=== PATIENT | female | born 1990 | race Two or more races ===

== ENCOUNTER 2018-05-20 22:25 | Emergency (ER) | payer MEDICAID, OTHER ==
[~2018-05-20] VITALS: Ht 165.1 cm; Wt 55.0 kg
[2018-05-21] MEDS ORDERED: OLANZAPINE 5MG TABLET ODT PO ONE (04:00)
[2018-05-21 05:04] LABS: BASOPHILS % 0.7 % (0.0-2.0); EOSINOPHILS % 3.9 % (0.0-5.0); HEMOGLOBIN. 12.2 g/dL (12.0-16.0); LYMPHOCYTES % 41.1 % (20.0-50.0); MEAN CORPUSCULAR HEMOGLOBIN 31.9 pg (28.0-32.0); MEAN CORPUSCULAR VOLUME 96.6 fL (81.0-99.0); MEAN PLATELET VOLUME 8.7 fl (7.4-10.4); MONOCYTES % 6.5 % (2.0-8.0); NEUTROPHILS % 47.8 % (40.0-76.0); PLATELET 283 x1000/uL (130-400); RED BLOOD CELL COUNT 3.83 mill/uL (4.2-5.4); RED CELL DISTRIBUTION WIDTH 13.4 % (11.6-14.6)
[2018-05-21 05:07] LABS: CHLORIDE 99 mEq/L (98-107)
[2018-05-21 05:11] LABS: ETHANOL BLOOD < 10 mg/dL
[2018-05-21] MEDS ORDERED: INSULIN REGULAR (HUMULIN R) 300UNITS/3ML SUBCUT ONE (05:45)
[2018-05-21] MEDS ORDERED: LORAZEPAM 1MG TABLET PO ONE (05:45)
[2018-05-21 05:50] VITALS: BP 108/70
== END 2018-05-21 06:23 | disposition home or self-care (01) ==
LOC: ER 22:25
DX: E11.65 Type 2 diabetes mellitus with hyperglycemia (principal); F41.9 Anxiety disorder, unspecified; F20.9 Schizophrenia, unspecified
CPT/HCPCS: 36415; 80053; 80307; 80320; 80329; 85025; 96372; 99283; J1815; G0480

== ENCOUNTER 2018-05-21 07:14 | Emergency (ER) | payer MEDICAID ==
[~2018-05-21] VITALS: Ht 162.6 cm; Wt 68.0 kg
[2018-05-21 07:32] VITALS: BP 94/62
== END 2018-05-21 08:17 | disposition left against medical advice (07) ==
LOC: ER 07:14
DX: R06.02 Shortness of breath (principal); Z53.21 Procedure and treatment not carried out due to patient leaving prior to being seen by health care provider

== ENCOUNTER 2018-06-02 13:12 | Emergency (ER) | payer MEDICAID ==
[~2018-06-02] VITALS: Ht 157.5 cm; Wt 64.0 kg
[2018-06-02 17:02] LABS: CLARITY URINE CLEAR (CLEAR); COLOR URINE YELLOW (YELLOW); KETONES URINE 3+ (NEGATIVE); LEUKOCYTE ESTERASE URINE NEGATIVE (NEGATIVE); NITRITE URINE NEGATIVE (NEGATIVE); OCCULT BLOOD URINE NEGATIVE (NEGATIVE); PROTEIN URINE NEGATIVE (NEGATIVE); UROBILINOGEN URINE 0.2 E.U./dL (0.2-1.0)
[2018-06-02] MEDS ORDERED: KETOROLAC 30MG/ML VIAL IV STA (17:50)
[2018-06-02] MEDS ORDERED: SODIUM CHLORIDE 0.9% 1,000 ML IV ONE ×2 (17:50→20:33)
[2018-06-02] MEDS ORDERED: ONDANSETRON HCL 4MG/2ML INJ IV STA (17:50)
[2018-06-02 19:12] LABS: BASOPHILS % 0.7 % (0.0-2.0); HEMATOCRIT. 40.4 % (36.0-48.0); HEMOGLOBIN. 13.5 g/dL (12.0-16.0); LYMPHOCYTES % 41.4 % (20.0-50.0); MEAN CORPUSCULAR HEMOGLOBIN 32.1 pg (28.0-32.0); MEAN CORPUSCULAR VOLUME 96.1 fL (81.0-99.0); MEAN PLATELET VOLUME 8.8 fl (7.4-10.4); MONOCYTES % 5.8 % (2.0-8.0); NEUTROPHILS % 50.1 % (40.0-76.0); PLATELET 335 x1000/uL (130-400); RED CELL DISTRIBUTION WIDTH 13.3 % (11.6-14.6)
[2018-06-02 19:19] LABS: CHLORIDE 100 mEq/L (98-107)
[2018-06-02 19:23] LABS: ETHANOL BLOOD < 10 mg/dL
[2018-06-02 19:25] VITALS: BP 113/83
[2018-06-02 19:59] LABS: HCG SCREEN NEGATIVE
[2018-06-02] MEDS ORDERED: LORAZEPAM 2MG/ML CPJ IV ONE (20:45)
[2018-06-02] MEDS ORDERED: FLUCONAZOLE 100MG TABLET PO ONE (21:15)
[2018-06-02] MEDS ORDERED: INSULIN REGULAR (HUMULIN R) 300UNITS/3ML IV ONE (21:30)
[2018-06-02] MEDS ORDERED: INSULIN REGULAR (HUMULIN R) 300UNITS/3ML SUBCUT ONE (21:30)
[2018-06-03 13:08] LABS: *COCAINE SCREEN URINE NEGATIVE (NEGATIVE); CANNABINOID URINE SCREEN NEGATIVE (NEGATIVE); METHADONE URINE SCREEN NEGATIVE (NEGATIVE); OPIATES URINE SCREEN NEGATIVE (NEGATIVE); PHENCYCLIDINE URINE SCREEN NEGATIVE (NEGATIVE)
[2018-06-03 13:09] LABS: *BARBITURATES SCREEN URINE NEGATIVE (NEGATIVE); *BENZODIAZEPINES SCREEN URINE NEGATIVE (NEGATIVE)
[2018-06-03 13:11] LABS: *AMPHETAMINES SCREEN URINE PRESUMTIVE POSITIVE (NEGATIVE)
== END 2018-06-02 22:32 | disposition left against medical advice (07) ==
LOC: ER 13:12
DX: S09.8XXA Other specified injuries of head, initial encounter (principal); F15.10 Other stimulant abuse, uncomplicated; E11.9 Type 2 diabetes mellitus without complications; X58.XXXA Exposure to other specified factors, initial encounter; Y93.89 Activity, other specified; Y92.89 Other specified places as the place of occurrence of the external cause; Y99.8 Other external cause status; Z91.041 Radiographic dye allergy status; Z88.6 Allergy status to analgesic agent; Z88.1 Allergy status to other antibiotic agents
CPT/HCPCS: 36415; 70450; 80053; 80305; 80320; 81003; 81025; 82962; 83690; 83880; 84484; 84703; 85025; 93005; 96361; 96372; 96374; 96375; 99284; J1815; J1885; J2060; J2405; J7030; Z7610; G0480

== ENCOUNTER 2018-07-30 05:42 | Emergency (ER) | payer MEDICAID ==
[~2018-07-30] VITALS: Ht 157.5 cm; Wt 59.0 kg
[2018-07-30] MEDS ORDERED: ESCI20TA PO (06:04)
[2018-07-30] MEDS ORDERED: INSLIS SUBCUT (06:06)
[2018-07-30 06:43] LABS: BASOPHILS % 0.8 % (0.0-2.0); EOSINOPHILS % 1.5 % (0.0-5.0); HEMATOCRIT. 36.2 % (36.0-48.0); HEMOGLOBIN. 12.1 g/dL (12.0-16.0); LYMPHOCYTES % 33.4 % (20.0-50.0); MEAN CORPUSCULAR VOLUME 92.6 fL (81.0-99.0); MEAN PLATELET VOLUME 8.6 fl (7.4-10.4); NEUTROPHILS % 59.3 % (40.0-76.0); PLATELET 326 x1000/uL (130-400); RED BLOOD CELL COUNT 3.91 mill/uL (4.2-5.4); RED CELL DISTRIBUTION WIDTH 13.8 % (11.6-14.6)
[2018-07-30 06:46] LABS: CHLORIDE 101 mEq/L (98-107)
[2018-07-30] MEDS ORDERED: LORAZEPAM 2MG/ML CPJ IV ONE (07:15)
[2018-07-30] MEDS ORDERED: HALOPERIDOL LACTATE 5MG/ML VIAL IM ONE (07:15)
[2018-07-30 08:50] LABS: *BARBITURATES SCREEN URINE NEGATIVE (NEGATIVE); *BENZODIAZEPINES SCREEN URINE NEGATIVE (NEGATIVE); *COCAINE SCREEN URINE NEGATIVE (NEGATIVE); METHADONE URINE SCREEN NEGATIVE (NEGATIVE); OPIATES URINE SCREEN NEGATIVE (NEGATIVE)
[2018-07-30 08:51] LABS: CANNABINOID URINE SCREEN NEGATIVE (NEGATIVE); PHENCYCLIDINE URINE SCREEN NEGATIVE (NEGATIVE)
[2018-07-30 08:58] LABS: *AMPHETAMINES SCREEN URINE PRESUMTIVE POSITIVE (NEGATIVE)
[2018-07-30 10:05] VITALS: BP 100/68
== END 2018-07-30 10:07 | disposition home or self-care (01) ==
LOC: ER 05:42
DX: F19.10 Other psychoactive substance abuse, uncomplicated (principal); R06.02 Shortness of breath; R07.89 Other chest pain; E11.9 Type 2 diabetes mellitus without complications; Z88.1 Allergy status to other antibiotic agents; Z88.6 Allergy status to analgesic agent; Z91.041 Radiographic dye allergy status
CPT/HCPCS: 36415; 71045; 80053; 80305; 83880; 84484; 85025; 93005; 96372; 99284; J1630; J2060; Z7610

== ENCOUNTER 2018-12-03 18:46 | Emergency (ER) | payer MEDICAID ==
[~2018-12-03] VITALS: Ht 157.5 cm; Wt 70.0 kg
[~2018-12-03 18:46] MED LIST: ESCI20TA PO; INSLIS SUBCUT
[2018-12-03 19:13] VITALS: BP 101/47
== END 2018-12-03 22:00 | disposition left against medical advice (07) ==
LOC: ER 18:46
DX: F41.9 Anxiety disorder, unspecified (principal); Z53.21 Procedure and treatment not carried out due to patient leaving prior to being seen by health care provider

== ENCOUNTER 2018-12-15 04:47 | Emergency (ER) | payer MEDICAID ==
[~2018-12-15] VITALS: Ht 167.6 cm; Wt 68.0 kg
[2018-12-15] MEDS ORDERED: LORAZEPAM 2MG/ML CPJ IM PRN (07:15)
[2018-12-15 08:22] LABS: BASOPHILS % 0.6 % (0.0-2.0); EOSINOPHILS % 1.6 % (0.0-5.0); HEMATOCRIT. 30.9 % (36.0-48.0); MEAN CORPUSCULAR HEMOGLOBIN 27.9 pg (28.0-32.0); MEAN CORPUSCULAR VOLUME 86.7 fL (81.0-99.0); MEAN PLATELET VOLUME 8.3 fl (7.4-10.4); MONOCYTES % 5.9 % (2.0-8.0); NEUTROPHILS % 51.9 % (40.0-76.0); PLATELET 333 x1000/uL (130-400); RED BLOOD CELL COUNT 3.57 mill/uL (4.2-5.4)
[2018-12-15 08:25] LABS: CHLORIDE 102 mEq/L (98-107)
[2018-12-15 08:32] LABS: ETHANOL BLOOD < 10 mg/dL
[2018-12-15 08:56] LABS: CLARITY URINE CLEAR (CLEAR); COLOR URINE YELLOW (YELLOW); KETONES URINE NEGATIVE (NEGATIVE); LEUKOCYTE ESTERASE URINE NEGATIVE (NEGATIVE); NITRITE URINE NEGATIVE (NEGATIVE); OCCULT BLOOD URINE NEGATIVE (NEGATIVE); PH URINE 6.5 (4.5-8.0); PROTEIN URINE TRACE (NEGATIVE); SPECIFIC GRAVITY URINE 1.032 (1.005-1.030); UROBILINOGEN URINE 0.2 E.U./dL (0.2-1.0)
[2018-12-15 09:07] LABS: *BARBITURATES SCREEN URINE NEGATIVE (NEGATIVE); *BENZODIAZEPINES SCREEN URINE NEGATIVE (NEGATIVE); *COCAINE SCREEN URINE NEGATIVE (NEGATIVE)
[2018-12-15 09:08] LABS: CANNABINOID URINE SCREEN NEGATIVE (NEGATIVE); METHADONE URINE SCREEN NEGATIVE (NEGATIVE); OPIATES URINE SCREEN NEGATIVE (NEGATIVE); PHENCYCLIDINE URINE SCREEN NEGATIVE (NEGATIVE)
[2018-12-15 09:09] LABS: HCG SCREEN NEGATIVE
[2018-12-15 09:44] LABS: *AMPHETAMINES SCREEN URINE PRESUMTIVE POSITIVE (NEGATIVE)
[2018-12-15 11:28] VITALS: BP 120/81
== END 2018-12-15 14:14 | disposition left against medical advice (07) ==
LOC: ER 04:47
DX: F15.10 Other stimulant abuse, uncomplicated (principal); R44.0 Auditory hallucinations; E11.9 Type 2 diabetes mellitus without complications; F19.10 Other psychoactive substance abuse, uncomplicated; Z91.041 Radiographic dye allergy status; Z88.1 Allergy status to other antibiotic agents; Z88.6 Allergy status to analgesic agent; Z79.4 Long term (current) use of insulin; Z79.899 Other long term (current) drug therapy
CPT/HCPCS: 36415; 80053; 80305; 80320; 81003; 84703; 85025; 96372; 99284; J2060; G0480

== ENCOUNTER 2018-12-16 14:27 | Emergency (ER) | payer MEDICAID ==
[~2018-12-16] VITALS: Ht 162.6 cm; Wt 60.0 kg
[2018-12-16] MEDS ORDERED: LORAZEPAM 1MG TABLET PO ONE (16:15)
[2018-12-16 17:01] LABS: BASOPHILS % 0.8 % (0.0-2.0); EOSINOPHILS % 2.2 % (0.0-5.0); HEMATOCRIT. 29.4 % (36.0-48.0); HEMOGLOBIN. 9.7 g/dL (12.0-16.0); MEAN CORPUSCULAR HEMOGLOBIN 28.4 pg (28.0-32.0); MEAN CORPUSCULAR VOLUME 85.8 fL (81.0-99.0); MEAN PLATELET VOLUME 8.5 fl (7.4-10.4); MONOCYTES % 5.4 % (2.0-8.0); NEUTROPHILS % 45.6 % (40.0-76.0); PLATELET 338 x1000/uL (130-400); RED BLOOD CELL COUNT 3.43 mill/uL (4.2-5.4); RED CELL DISTRIBUTION WIDTH 16.5 % (11.6-14.6)
[2018-12-16 17:05] LABS: CHLORIDE 100 mEq/L (98-107); HCG SCREEN NEGATIVE
[2018-12-16] MEDS ORDERED: SODIUM CHLORIDE 0.9% 1,000 ML IV ONE (17:21)
[2018-12-16] MEDS ORDERED: INSULIN REGULAR (HUMULIN R) UD 100 UNITS/ML SYR IV ONE (17:30)
[2018-12-16 18:00] VITALS: BP 130/76
[2018-12-16 18:33] LABS: CLARITY URINE CLEAR (CLEAR); COLOR URINE YELLOW (YELLOW); KETONES URINE 2+ (NEGATIVE); LEUKOCYTE ESTERASE URINE NEGATIVE (NEGATIVE); NITRITE URINE NEGATIVE (NEGATIVE); OCCULT BLOOD URINE NEGATIVE (NEGATIVE); PH URINE 5.5 (4.5-8.0); PROTEIN URINE NEGATIVE (NEGATIVE); SPECIFIC GRAVITY URINE 1.032 (1.005-1.030); UROBILINOGEN URINE 0.2 E.U./dL (0.2-1.0)
[2018-12-16] MEDS ORDERED: INSULIN REGULAR (HUMULIN R) 300UNITS/3ML IV NR (18:45)
== END 2018-12-16 19:56 | disposition home or self-care (01) ==
LOC: ER 14:27
DX: F15.10 Other stimulant abuse, uncomplicated (principal); E11.65 Type 2 diabetes mellitus with hyperglycemia; I10 Essential (primary) hypertension; Z79.4 Long term (current) use of insulin; Z88.5 Allergy status to narcotic agent; Z88.3 Allergy status to other anti-infective agents; Z91.041 Radiographic dye allergy status; F41.9 Anxiety disorder, unspecified
CPT/HCPCS: 36415; 80053; 81003; 84703; 85025; 96360; 99283; J7030; J1815

== ENCOUNTER 2018-12-17 19:50 | Emergency (ER) | payer MEDICAID ==
[~2018-12-17] VITALS: Ht 172.7 cm; Wt 64.0 kg
[2018-12-18] MEDS ORDERED: SODIUM CHLORIDE 0.9% 1,000 ML IV ONE (01:57)
[2018-12-18] MEDS ORDERED: LORAZEPAM 1MG TABLET PO ONE (02:00)
[2018-12-18 02:01] LABS: CLARITY URINE CLEAR (CLEAR); COLOR URINE YELLOW (YELLOW); KETONES URINE TRACE (NEGATIVE); LEUKOCYTE ESTERASE URINE NEGATIVE (NEGATIVE); NITRITE URINE NEGATIVE (NEGATIVE); OCCULT BLOOD URINE NEGATIVE (NEGATIVE); PH URINE 5.5 (4.5-8.0); PROTEIN URINE 1+ (NEGATIVE); SPECIFIC GRAVITY URINE 1.039 (1.005-1.030); UROBILINOGEN URINE 0.2 E.U./dL (0.2-1.0)
[2018-12-18 02:50] LABS: BASOPHILS % 0.8 % (0.0-2.0); EOSINOPHILS % 3.9 % (0.0-5.0); HEMATOCRIT. 28.4 % (36.0-48.0); HEMOGLOBIN. 9.3 g/dL (12.0-16.0); LYMPHOCYTES % 52.1 % (20.0-50.0); MEAN CORPUSCULAR HEMOGLOBIN 28.3 pg (28.0-32.0); MEAN CORPUSCULAR VOLUME 86.1 fL (81.0-99.0); MEAN PLATELET VOLUME 8.4 fl (7.4-10.4); MONOCYTES % 6.2 % (2.0-8.0); PLATELET 336 x1000/uL (130-400); RED CELL DISTRIBUTION WIDTH 16.9 % (11.6-14.6)
[2018-12-18 02:52] LABS: CHLORIDE 104 mEq/L (98-107)
[2018-12-18 02:54] LABS: HCG SCREEN NEGATIVE
[2018-12-18] MEDS ORDERED: LORAZEPAM 2MG/ML CPJ IM ONE (03:15)
[2018-12-18 04:19] VITALS: BP 110/86
[2018-12-18 15:06] LABS: *BARBITURATES SCREEN URINE NEGATIVE (NEGATIVE); *BENZODIAZEPINES SCREEN URINE NEGATIVE (NEGATIVE); *COCAINE SCREEN URINE NEGATIVE (NEGATIVE); METHADONE URINE SCREEN NEGATIVE (NEGATIVE); OPIATES URINE SCREEN NEGATIVE (NEGATIVE); PHENCYCLIDINE URINE SCREEN NEGATIVE (NEGATIVE)
[2018-12-18 15:07] LABS: *AMPHETAMINES SCREEN URINE PRESUMTIVE POSITIVE (NEGATIVE); CANNABINOID URINE SCREEN NEGATIVE (NEGATIVE)
== END 2018-12-18 05:24 | disposition home or self-care (01) ==
LOC: ER 19:50
DX: R10.2 Pelvic and perineal pain (principal); F15.10 Other stimulant abuse, uncomplicated; E11.9 Type 2 diabetes mellitus without complications; G40.909 Epilepsy, unspecified, not intractable, without status epilepticus; F99 Mental disorder, not otherwise specified; Z79.4 Long term (current) use of insulin; Z88.5 Allergy status to narcotic agent; Z88.3 Allergy status to other anti-infective agents; Z91.041 Radiographic dye allergy status
CPT/HCPCS: 36415; 76830; 76856; 80053; 80305; 81003; 81025; 83690; 84703; 85025; 85610; 96372; 99284; J2060; J7030; Z7610

== ENCOUNTER 2018-12-28 23:16 | Emergency (ER) | payer MEDICAID ==
[~2018-12-28] VITALS: Ht 160 cm; Wt 72.0 kg
[2018-12-29] MEDS ORDERED: LORAZEPAM 1MG TABLET PO ONE (01:15)
[2018-12-29 02:46] VITALS: BP 125/82
== END 2018-12-29 03:03 | disposition home or self-care (01) ==
LOC: ER 23:16
DX: F15.90 Other stimulant use, unspecified, uncomplicated (principal); F41.9 Anxiety disorder, unspecified; E11.9 Type 2 diabetes mellitus without complications; Z88.5 Allergy status to narcotic agent; Z88.1 Allergy status to other antibiotic agents; Z88.8 Allergy status to other drugs, medicaments and biological substances; Z79.4 Long term (current) use of insulin; Z79.899 Other long term (current) drug therapy
CPT/HCPCS: 99283

== ENCOUNTER 2018-12-29 03:23 | Emergency (ER) | payer MEDICAID ==
[~2018-12-29] VITALS: Ht 165.1 cm; Wt 68.0 kg
[2018-12-29] MEDS ORDERED: IBUPROFEN 600MG TABLET PO ONE (10:45)
[2018-12-29] MEDS ORDERED: HYDROCODONE/ACETAMINOPHEN 5/325MG TABLET PO ONE (10:45)
[2018-12-29 11:30] VITALS: BP 126/78
== END 2018-12-29 11:49 | disposition home or self-care (01) ==
LOC: ER 03:23
DX: R10.9 Unspecified abdominal pain (principal); M54.9 Dorsalgia, unspecified; F41.9 Anxiety disorder, unspecified; F15.10 Other stimulant abuse, uncomplicated; Z88.5 Allergy status to narcotic agent; Z88.1 Allergy status to other antibiotic agents; Z88.8 Allergy status to other drugs, medicaments and biological substances; Z79.4 Long term (current) use of insulin; Z79.899 Other long term (current) drug therapy
CPT/HCPCS: 99283

== ENCOUNTER 2018-12-30 15:40 | Emergency (ER) | payer MEDICAID ==
[~2018-12-30] VITALS: Ht 162.6 cm; Wt 60.0 kg
[2018-12-30] MEDS ORDERED: LORAZEPAM 2MG/ML CPJ IM ONE (20:00)
[2018-12-30 20:17] LABS: CLARITY URINE CLOUDY (CLEAR); COLOR URINE YELLOW (YELLOW); KETONES URINE NEGATIVE (NEGATIVE); LEUKOCYTE ESTERASE URINE TRACE (NEGATIVE); NITRITE URINE NEGATIVE (NEGATIVE); OCCULT BLOOD URINE 3+ (NEGATIVE); PROTEIN URINE TRACE (NEGATIVE); SPECIFIC GRAVITY URINE 1.029 (1.005-1.030); UROBILINOGEN URINE 0.2 E.U./dL (0.2-1.0)
[2018-12-30 20:23] LABS: BASOPHILS % 0.8 % (0.0-2.0); HEMATOCRIT. 27.7 % (36.0-48.0); HEMOGLOBIN. 9.1 g/dL (12.0-16.0); LYMPHOCYTES % 44.2 % (20.0-50.0); MEAN CORPUSCULAR HEMOGLOBIN 27.5 pg (28.0-32.0); MEAN CORPUSCULAR VOLUME 83.9 fL (81.0-99.0); MEAN PLATELET VOLUME 7.9 fl (7.4-10.4); MONOCYTES % 4.9 % (2.0-8.0); NEUTROPHILS % 47.1 % (40.0-76.0); PLATELET 373 x1000/uL (130-400); RED BLOOD CELL COUNT 3.31 mill/uL (4.2-5.4); RED CELL DISTRIBUTION WIDTH 16.5 % (11.6-14.6)
[2018-12-30 20:28] LABS: CHLORIDE 109 mEq/L (98-107)
[2018-12-30 20:32] LABS: ETHANOL BLOOD < 10 mg/dL
[2018-12-30 20:34] LABS: HCG SCREEN NEGATIVE
[2018-12-30 20:35] LABS: *BARBITURATES SCREEN URINE NEGATIVE (NEGATIVE); *BENZODIAZEPINES SCREEN URINE NEGATIVE (NEGATIVE); *COCAINE SCREEN URINE NEGATIVE (NEGATIVE); METHADONE URINE SCREEN NEGATIVE (NEGATIVE); OPIATES URINE SCREEN NEGATIVE (NEGATIVE); PHENCYCLIDINE URINE SCREEN NEGATIVE (NEGATIVE)
[2018-12-30 20:36] LABS: CANNABINOID URINE SCREEN NEGATIVE (NEGATIVE)
[2018-12-30 20:38] LABS: *AMPHETAMINES SCREEN URINE PRESUMTIVE POSITIVE (NEGATIVE)
[2018-12-31 05:18] VITALS: BP 115/87
== END 2018-12-31 05:20 | disposition home or self-care (01) ==
LOC: ER 15:40
DX: T43.621A Poisoning by amphetamines, accidental (unintentional), initial encounter (principal); R00.2 Palpitations; N39.0 Urinary tract infection, site not specified; E86.0 Dehydration; E11.9 Type 2 diabetes mellitus without complications; F41.9 Anxiety disorder, unspecified; Z91.041 Radiographic dye allergy status; Z88.6 Allergy status to analgesic agent; Z88.1 Allergy status to other antibiotic agents; Z79.4 Long term (current) use of insulin; Y92.89 Other specified places as the place of occurrence of the external cause
CPT/HCPCS: 36415; 80053; 80305; 80320; 81003; 81025; 83690; 84484; 84703; 85025; 93005; 96372; 99284; J2060; Z7610; G0480

== ENCOUNTER 2019-01-07 05:29 | Emergency (ER) | payer MEDICAID ==
[~2019-01-07] VITALS: Ht 160 cm; Wt 59.0 kg
[2019-01-07] MEDS ORDERED: ACETAMINOPHEN 325MG TABLET PO ONE (06:30)
[2019-01-07] MEDS ORDERED: LORAZEPAM 1MG TABLET PO ONE (06:30)
[2019-01-07 07:39] VITALS: BP 112/75
== END 2019-01-07 07:40 | disposition home or self-care (01) ==
LOC: ER 05:29
DX: M54.5 Low back pain (principal); F15.10 Other stimulant abuse, uncomplicated; E11.9 Type 2 diabetes mellitus without complications; F41.9 Anxiety disorder, unspecified; F17.200 Nicotine dependence, unspecified, uncomplicated; Z91.041 Radiographic dye allergy status; Z88.6 Allergy status to analgesic agent; Z88.1 Allergy status to other antibiotic agents; Z79.4 Long term (current) use of insulin
CPT/HCPCS: 99283

== ENCOUNTER 2019-01-08 15:10 | Emergency (ER) | payer MEDICAID ==
[~2019-01-08] VITALS: Ht 162.6 cm; Wt 60.0 kg
[2019-01-08] MEDS ORDERED: KETOROLAC 30MG/ML VIAL IV STA (16:09)
[2019-01-08] MEDS ORDERED: SODIUM CHLORIDE 0.9% 1,000 ML IV ONE ×2 (16:09→17:04)
[2019-01-08 16:41] LABS: BASOPHILS % 0.8 % (0.0-2.0); EOSINOPHILS % 1.7 % (0.0-5.0); HEMATOCRIT. 29.1 % (36.0-48.0); HEMOGLOBIN. 9.5 g/dL (12.0-16.0); MEAN CORPUSCULAR HEMOGLOBIN 27.6 pg (28.0-32.0); MEAN CORPUSCULAR VOLUME 84.9 fL (81.0-99.0); MEAN PLATELET VOLUME 8.3 fl (7.4-10.4); MONOCYTES % 5.2 % (2.0-8.0); NEUTROPHILS % 56.3 % (40.0-76.0); PLATELET 308 x1000/uL (130-400); RED BLOOD CELL COUNT 3.43 mill/uL (4.2-5.4); RED CELL DISTRIBUTION WIDTH 17.5 % (11.6-14.6)
[2019-01-08 16:46] LABS: CHLORIDE 104 mEq/L (98-107)
[2019-01-08 16:51] LABS: HCG SCREEN NEGATIVE
[2019-01-08 16:57] LABS: CLARITY URINE TURBID (CLEAR); COLOR URINE YELLOW (YELLOW); KETONES URINE TRACE (NEGATIVE); LEUKOCYTE ESTERASE URINE 2+ (NEGATIVE); NITRITE URINE NEGATIVE (NEGATIVE); OCCULT BLOOD URINE TRACE (NEGATIVE); PROTEIN URINE TRACE (NEGATIVE); SPECIFIC GRAVITY URINE 1.026 (1.005-1.030); UROBILINOGEN URINE 0.2 E.U./dL (0.2-1.0)
[2019-01-08] MEDS ORDERED: INSULIN REGULAR (HUMULIN R) UD 100 UNITS/ML SYR SUBCUT ONE (17:15)
[2019-01-08] MEDS ORDERED: CEFTRIAXONE 1 G PREMIX 50 ML IV ONE (17:15)
[2019-01-08] MEDS ORDERED: INSULIN REGULAR (HUMULIN R) 300UNITS/3ML SUBCUT NR (17:25)
[2019-01-08 19:11] VITALS: BP 128/88
== END 2019-01-08 19:14 | disposition home or self-care (01) ==
LOC: ER 15:10
DX: N39.0 Urinary tract infection, site not specified (principal); R73.9 Hyperglycemia, unspecified; F20.9 Schizophrenia, unspecified; F15.10 Other stimulant abuse, uncomplicated; Z88.5 Allergy status to narcotic agent; Z88.3 Allergy status to other anti-infective agents; Z91.041 Radiographic dye allergy status
CPT/HCPCS: 36415; 71045; 80053; 81003; 82962; 84703; 85025; 87077; 87086; 87186; 96365; 96372; 96375; 99284; J0696; J1815; J1885; J7030

== ENCOUNTER 2019-02-02 22:48 | Emergency (ER) | payer MEDICAID ==
[~2019-02-02] VITALS: Ht 157.5 cm; Wt 67.0 kg
[2019-02-02 22:51] VITALS: BP 116/76
== END 2019-02-03 01:44 | disposition left against medical advice (07) ==
LOC: ER 22:48
DX: Z53.21 Procedure and treatment not carried out due to patient leaving prior to being seen by health care provider (principal)

== ENCOUNTER 2019-02-12 19:51 | Emergency (ER) | payer MEDICAID ==
[~2019-02-12] VITALS: Ht 167.6 cm; Wt 68.0 kg
[2019-02-12] MEDS ORDERED: HALOPERIDOL LACTATE 5MG/ML VIAL IM STA (20:16)
[2019-02-12] MEDS ORDERED: OLANZAPINE 10 MG/VIAL IM STA (20:16)
[2019-02-12] MEDS ORDERED: LORAZEPAM 2MG/ML CPJ IM ONE (20:45)
[2019-02-12] MEDS ORDERED: LORAZEPAM 2MG/ML CPJ IM NR (23:15)
[2019-02-12 23:36] LABS: CLARITY URINE CLEAR (CLEAR); COLOR URINE YELLOW (YELLOW); KETONES URINE NEGATIVE (NEGATIVE); LEUKOCYTE ESTERASE URINE 1+ (NEGATIVE); NITRITE URINE POSITIVE (NEGATIVE); OCCULT BLOOD URINE NEGATIVE (NEGATIVE); PH URINE 5.5 (4.5-8.0); PROTEIN URINE 1+ (NEGATIVE)
[2019-02-12 23:42] LABS: CHLORIDE 109 mEq/L (98-107)
[2019-02-12 23:48] LABS: BASOPHILS % 0.8 % (0.0-2.0); EOSINOPHILS % 2.4 % (0.0-5.0); HEMATOCRIT. 24.8 % (36.0-48.0); HEMOGLOBIN. 8.1 g/dL (12.0-16.0); LYMPHOCYTES % 38.2 % (20.0-50.0); MEAN CORPUSCULAR HEMOGLOBIN 26.3 pg (28.0-32.0); MEAN PLATELET VOLUME 7.6 fl (7.4-10.4); MONOCYTES % 7.5 % (2.0-8.0); NEUTROPHILS % 51.1 % (40.0-76.0); PLATELET 325 x1000/uL (130-400); RED BLOOD CELL COUNT 3.07 mill/uL (4.2-5.4); RED CELL DISTRIBUTION WIDTH 18.9 % (11.6-14.6)
[2019-02-12 23:50] LABS: ETHANOL BLOOD < 10 mg/dL
[2019-02-12 23:53] LABS: *BARBITURATES SCREEN URINE NEGATIVE (NEGATIVE); CANNABINOID URINE SCREEN NEGATIVE (NEGATIVE); PHENCYCLIDINE URINE SCREEN NEGATIVE (NEGATIVE)
[2019-02-12 23:54] LABS: *COCAINE SCREEN URINE NEGATIVE (NEGATIVE); OPIATES URINE SCREEN NEGATIVE (NEGATIVE)
[2019-02-12 23:55] LABS: *BENZODIAZEPINES SCREEN URINE NEGATIVE (NEGATIVE)
[2019-02-12 23:58] LABS: *AMPHETAMINES SCREEN URINE PRESUMTIVE POSITIVE (NEGATIVE)
[2019-02-13] LABS: METHADONE URINE SCREEN NEGATIVE (NEGATIVE)
[2019-02-13] MEDS ORDERED: CEFTRIAXONE SODIUM 500 MG/VIAL IM NR (02:00)
[2019-02-13 15:30] VITALS: BP 103/70
== END 2019-02-13 15:35 | disposition home or self-care (01) ==
LOC: ER 19:51
DX: F23 Brief psychotic disorder (principal); F15.129 Other stimulant abuse with intoxication, unspecified; N39.0 Urinary tract infection, site not specified; E11.9 Type 2 diabetes mellitus without complications; Z86.14 Personal history of Methicillin resistant Staphylococcus aureus infection; Z98.890 Other specified postprocedural states; Z88.5 Allergy status to narcotic agent; Z88.3 Allergy status to other anti-infective agents; Z91.041 Radiographic dye allergy status
CPT/HCPCS: 36415; 80053; 80305; 80320; 81003; 85025; 96372; 99284; J1630; J2060; J3490; G0480

== ENCOUNTER 2019-02-16 18:00 | Emergency (ER) | payer MEDICAID ==
[~2019-02-16] VITALS: Ht 167.6 cm; Wt 70.0 kg
[2019-02-16 23:06] VITALS: BP 125/69
== END 2019-02-16 23:08 | disposition home or self-care (01) ==
LOC: ER 18:00
DX: J06.9 Acute upper respiratory infection, unspecified (principal); E11.9 Type 2 diabetes mellitus without complications; F15.10 Other stimulant abuse, uncomplicated; Z86.14 Personal history of Methicillin resistant Staphylococcus aureus infection; Z79.4 Long term (current) use of insulin; Z79.899 Other long term (current) drug therapy; Z88.6 Allergy status to analgesic agent; Z91.041 Radiographic dye allergy status; Z88.1 Allergy status to other antibiotic agents; Z98.890 Other specified postprocedural states
CPT/HCPCS: 99283

== ENCOUNTER 2019-02-16 23:56 | Emergency (ER) | payer MEDICAID ==
[~2019-02-16] VITALS: Ht 165.1 cm; Wt 64.0 kg
[2019-02-17 00:02] VITALS: BP 118/80
== END 2019-02-17 01:13 | disposition left against medical advice (07) ==
LOC: ER 23:56
DX: Z53.21 Procedure and treatment not carried out due to patient leaving prior to being seen by health care provider (principal)

== ENCOUNTER 2019-02-17 13:30 | Emergency (ER) | payer MEDICAID ==
[~2019-02-17] VITALS: Ht 165.1 cm; Wt 68.0 kg
[2019-02-17 23:00] VITALS: BP 114/78
== END 2019-02-18 01:32 | disposition home or self-care (01) ==
LOC: ER 13:30
DX: F41.9 Anxiety disorder, unspecified (principal); E11.9 Type 2 diabetes mellitus without complications; I10 Essential (primary) hypertension; F15.10 Other stimulant abuse, uncomplicated; F10.20 Alcohol dependence, uncomplicated; F32.9 Major depressive disorder, single episode, unspecified; Z79.4 Long term (current) use of insulin; Z91.041 Radiographic dye allergy status; Z88.6 Allergy status to analgesic agent; Z88.1 Allergy status to other antibiotic agents; Y90.9 Presence of alcohol in blood, level not specified
CPT/HCPCS: 99283; Z7610

== ENCOUNTER 2019-02-19 15:31 | Emergency (ER) | payer MEDICAID ==
[~2019-02-19] VITALS: Ht 165.1 cm; Wt 59.0 kg
[2019-02-19 17:25] VITALS: BP 101/76
== END 2019-02-19 23:04 | disposition left against medical advice (07) ==
LOC: ER 15:41
DX: Z53.21 Procedure and treatment not carried out due to patient leaving prior to being seen by health care provider (principal)

== ENCOUNTER 2019-03-10 19:21 | Emergency (ER) | payer MEDICAID ==
[~2019-03-10] VITALS: Ht 157.5 cm; Wt 64.0 kg
[2019-03-10 19:35] VITALS: BP 114/82
== END 2019-03-10 20:40 | disposition left against medical advice (07) ==
LOC: ER 19:43
DX: Z53.21 Procedure and treatment not carried out due to patient leaving prior to being seen by health care provider (principal)

== ENCOUNTER 2019-03-11 22:44 | Emergency (ER) | payer MEDICAID ==
[~2019-03-11] VITALS: Ht 167.6 cm; Wt 68.0 kg
[2019-03-12 00:44] VITALS: BP 127/86
== END 2019-03-12 00:55 | disposition home or self-care (01) ==
LOC: ER 22:44
DX: F41.9 Anxiety disorder, unspecified (principal); R00.0 Tachycardia, unspecified; F15.10 Other stimulant abuse, uncomplicated; E11.9 Type 2 diabetes mellitus without complications; Z79.4 Long term (current) use of insulin; Z88.5 Allergy status to narcotic agent; Z88.3 Allergy status to other anti-infective agents; Z91.041 Radiographic dye allergy status
CPT/HCPCS: 93005; 99283

== ENCOUNTER 2019-03-12 05:23 | Emergency (ER) | payer MEDICAID ==
[~2019-03-12] VITALS: Ht 167.6 cm; Wt 59.0 kg
[2019-03-12 05:31] VITALS: BP 136/78
== END 2019-03-12 08:05 | disposition left against medical advice (07) ==
LOC: ER 05:23
DX: Z53.21 Procedure and treatment not carried out due to patient leaving prior to being seen by health care provider (principal)

== ENCOUNTER 2019-03-22 06:58 | Emergency (ER) | payer MEDICAID ==
[~2019-03-22] VITALS: Ht 162.6 cm; Wt 72.0 kg
[2019-03-22] MEDS ORDERED: VISCOUS LIDOCAINE 2% 15 ML UDC PO ONE (08:45)
[2019-03-22] MEDS ORDERED: MAGNESIUM/ALUMINUM HYDROXIDE/SIMETHICONE 30ML UDC PO ONE (08:45)
[2019-03-22] MEDS ORDERED: ONDANSETRON 4MG ODT PO ONE (08:45)
[2019-03-22] MEDS ORDERED: FAMOTIDINE 20MG TABLET PO ONE (08:45)
[2019-03-22 09:13] LABS: CHLORIDE 95 mEq/L (98-107)
[2019-03-22 09:23] LABS: B-HCG QUANTITATIVE < 1 mIU/mL (<3)
[2019-03-22 09:24] LABS: BASOPHILS % 0.4 % (0.0-2.0); EOSINOPHILS % 1.6 % (0.0-5.0); HEMATOCRIT. 26.6 % (36.0-48.0); HEMOGLOBIN. 8.1 g/dL (12.0-16.0); LYMPHOCYTES % 11.7 % (20.0-50.0); MEAN CORPUSCULAR HEMOGLOBIN 24.6 pg (28.0-32.0); MEAN CORPUSCULAR VOLUME 80.4 fL (81.0-99.0); NEUTROPHILS % 81.3 % (40.0-76.0); RED BLOOD CELL COUNT 3.31 mill/uL (4.2-5.4); RED CELL DISTRIBUTION WIDTH 18.7 % (11.6-14.6)
[2019-03-22 10:06] LABS: PLATELET ESTIMATE NORMAL
[2019-03-22 10:09] LABS: PLATELET 329 x1000/uL (130-400)
[2019-03-22 10:37] LABS: CLARITY URINE CLEAR (CLEAR); COLOR URINE YELLOW (YELLOW); KETONES URINE TRACE (NEGATIVE); LEUKOCYTE ESTERASE URINE NEGATIVE (NEGATIVE); NITRITE URINE NEGATIVE (NEGATIVE); OCCULT BLOOD URINE TRACE (NEGATIVE); PH URINE 6.5 (4.5-8.0); PROTEIN URINE NEGATIVE (NEGATIVE); SPECIFIC GRAVITY URINE 1.032 (1.005-1.030); UROBILINOGEN URINE 0.2 E.U./dL (0.2-1.0)
[2019-03-22] MEDS ORDERED: LORAZEPAM 1MG TABLET PO NR (10:45)
[2019-03-22] MEDS ORDERED: INSULIN REGULAR (HUMULIN R) 300UNITS/3ML SUBCUT ONE (11:00)
[2019-03-22] MEDS ORDERED: SODIUM CHLORIDE 0.9% 1,000 ML IV ONE (12:00)
[2019-03-22] MEDS ORDERED: LORAZEPAM 2MG/ML CPJ IV ONE (12:30)
[2019-03-22 14:53] VITALS: BP 108/71
== END 2019-03-22 14:54 | disposition home or self-care (01) ==
LOC: ER 06:58
DX: R10.13 Epigastric pain (principal); R11.0 Nausea; R73.9 Hyperglycemia, unspecified; F41.9 Anxiety disorder, unspecified; F15.10 Other stimulant abuse, uncomplicated; Z88.5 Allergy status to narcotic agent; Z91.041 Radiographic dye allergy status; Z88.3 Allergy status to other anti-infective agents
CPT/HCPCS: 36415; 71045; 80053; 81003; 81025; 82962; 83690; 84702; 85025; 96361; 96372; 96374; 99284; J1815; J2060; Q0162

== ENCOUNTER 2019-03-24 20:30 | Emergency (ER) | payer MEDICAID ==
[~2019-03-24] VITALS: Ht 162.6 cm; Wt 73.0 kg
[2019-03-24 20:37] VITALS: BP 112/58
[2019-03-25] MEDS ORDERED: ONDANSETRON 4MG ODT PO ONE (02:30)
[2019-03-25] MEDS ORDERED: FAMOTIDINE 20MG TABLET PO ONE (02:30)
[2019-03-25] MEDS ORDERED: LORAZEPAM 1MG TABLET PO ONE (02:30)
[2019-03-25 02:32] LABS: CLARITY URINE CLEAR (CLEAR); COLOR URINE YELLOW (YELLOW); KETONES URINE NEGATIVE (NEGATIVE); LEUKOCYTE ESTERASE URINE NEGATIVE (NEGATIVE); NITRITE URINE NEGATIVE (NEGATIVE); OCCULT BLOOD URINE TRACE (NEGATIVE); PH URINE 6.5 (4.5-8.0); PROTEIN URINE 2+ (NEGATIVE); SPECIFIC GRAVITY URINE 1.038 (1.005-1.030); UROBILINOGEN URINE 0.2 E.U./dL (0.2-1.0)
== END 2019-03-25 04:24 | disposition home or self-care (01) ==
LOC: ER 20:30
DX: R10.9 Unspecified abdominal pain (principal); F15.10 Other stimulant abuse, uncomplicated; Z88.1 Allergy status to other antibiotic agents; Z88.6 Allergy status to analgesic agent; Z79.4 Long term (current) use of insulin
CPT/HCPCS: 81003; 81025; 99284; Q0162

== ENCOUNTER 2019-03-25 17:45 | Emergency (ER) | payer MEDICAID ==
[~2019-03-25] VITALS: Ht 162.6 cm; Wt 65.0 kg
[2019-03-25 17:48] VITALS: BP 128/72
[2019-03-25] MEDS ORDERED: ACETAMINOPHEN 325MG TABLET PO ONE (20:30)
[2019-03-25] MEDS ORDERED: FAMOTIDINE 20MG TABLET PO ONE (20:30)
== END 2019-03-25 21:40 | disposition home or self-care (01) ==
LOC: ER 17:45
DX: R10.9 Unspecified abdominal pain (principal); F15.20 Other stimulant dependence, uncomplicated; Z88.1 Allergy status to other antibiotic agents; Z88.6 Allergy status to analgesic agent; Z79.4 Long term (current) use of insulin
CPT/HCPCS: 99283

== ENCOUNTER 2019-03-25 22:47 | Emergency (ER) | payer MEDICAID ==
[~2019-03-25] VITALS: Ht 167.6 cm; Wt 71.0 kg
[2019-03-26] MEDS ORDERED: ACETAMINOPHEN 325MG TABLET PO STA (03:40)
[2019-03-26 03:45] VITALS: BP 124/87
[2019-03-26 04:13] LABS: BASOPHILS % 0.8 % (0.0-2.0); EOSINOPHILS % 2.6 % (0.0-5.0); HEMATOCRIT. 26.3 % (36.0-48.0); HEMOGLOBIN. 8.2 g/dL (12.0-16.0); LYMPHOCYTES % 29.1 % (20.0-50.0); MEAN CORPUSCULAR HEMOGLOBIN 24.4 pg (28.0-32.0); MEAN PLATELET VOLUME 7.5 fl (7.4-10.4); MONOCYTES % 6.6 % (2.0-8.0); NEUTROPHILS % 60.9 % (40.0-76.0); PLATELET 544 x1000/uL (130-400); RED BLOOD CELL COUNT 3.37 mill/uL (4.2-5.4); RED CELL DISTRIBUTION WIDTH 18.4 % (11.6-14.6)
[2019-03-26 04:24] LABS: CHLORIDE 102 mEq/L (98-107)
== END 2019-03-26 05:16 | disposition home or self-care (01) ==
LOC: ER 22:57
DX: M54.5 Low back pain (principal); M54.2 Cervicalgia; E11.9 Type 2 diabetes mellitus without complications; F15.10 Other stimulant abuse, uncomplicated; F17.210 Nicotine dependence, cigarettes, uncomplicated; Z79.4 Long term (current) use of insulin; Z91.041 Radiographic dye allergy status; Z88.5 Allergy status to narcotic agent; Z88.3 Allergy status to other anti-infective agents; Z98.890 Other specified postprocedural states
CPT/HCPCS: 36415; 80053; 85025; 99283

== ENCOUNTER 2019-04-10 14:35 | Emergency (ER) | payer MEDICAID ==
[~2019-04-10] VITALS: Ht 167.6 cm; Wt 58.0 kg
[2019-04-10] MEDS ORDERED: LORAZEPAM 1MG TABLET PO ONE (16:30)
[2019-04-10 17:22] VITALS: BP 119/72
== END 2019-04-10 17:22 | disposition home or self-care (01) ==
LOC: ER 14:35
DX: F41.9 Anxiety disorder, unspecified (principal); F15.10 Other stimulant abuse, uncomplicated; E11.9 Type 2 diabetes mellitus without complications; Z98.890 Other specified postprocedural states; Z91.041 Radiographic dye allergy status; Z88.5 Allergy status to narcotic agent; Z79.4 Long term (current) use of insulin; Z88.3 Allergy status to other anti-infective agents
CPT/HCPCS: 99283

== ENCOUNTER 2019-04-10 19:51 | Emergency (ER) | payer MEDICAID ==
[~2019-04-10] VITALS: Ht 157.5 cm; Wt 66.0 kg
[2019-04-10 20:26] VITALS: BP 117/67
[2019-04-10 22:13] LABS: CLARITY URINE TURBID (CLEAR); COLOR URINE YELLOW (YELLOW); KETONES URINE NEGATIVE (NEGATIVE); LEUKOCYTE ESTERASE URINE TRACE (NEGATIVE); NITRITE URINE NEGATIVE (NEGATIVE); OCCULT BLOOD URINE 1+ (NEGATIVE); PROTEIN URINE 2+ (NEGATIVE); SPECIFIC GRAVITY URINE 1.019 (1.005-1.030)
== END 2019-04-11 01:20 | disposition left against medical advice (07) ==
LOC: ER 19:51
DX: R06.02 Shortness of breath (principal); Z53.21 Procedure and treatment not carried out due to patient leaving prior to being seen by health care provider
CPT/HCPCS: 81003; 81025

== ENCOUNTER 2019-05-09 19:16 | Emergency (ER) | payer MEDICAID ==
[~2019-05-09] VITALS: Ht 170.2 cm; Wt 64.0 kg
[2019-05-10] MEDS ORDERED: SODIUM CHLORIDE 0.9% 1,000 ML IV ONE (00:05)
[2019-05-10] MEDS ORDERED: ONDANSETRON HCL 4MG/2ML INJ IV STA (00:05)
[2019-05-10] MEDS ORDERED: LORAZEPAM 2MG/ML CPJ IV STA (00:05)
[2019-05-10 00:41] LABS: BASOPHILS % 0.9 % (0.0-2.0); EOSINOPHILS % 0.9 % (0.0-5.0); HEMATOCRIT. 28.5 % (36.0-48.0); HEMOGLOBIN. 8.9 g/dL (12.0-16.0); LYMPHOCYTES % 22.7 % (20.0-50.0); MEAN CORPUSCULAR HEMOGLOBIN 22.5 pg (28.0-32.0); MEAN CORPUSCULAR VOLUME 72.1 fL (81.0-99.0); MEAN PLATELET VOLUME 7.4 fl (7.4-10.4); MONOCYTES % 5.4 % (2.0-8.0); NEUTROPHILS % 70.1 % (40.0-76.0); PLATELET 355 x1000/uL (130-400); RED BLOOD CELL COUNT 3.95 mill/uL (4.2-5.4); RED CELL DISTRIBUTION WIDTH 17.8 % (11.6-14.6)
[2019-05-10 00:46] LABS: CHLORIDE 99 mEq/L (98-107)
[2019-05-10 00:50] LABS: ETHANOL BLOOD < 10 mg/dL
[2019-05-10 00:55] LABS: CREATINE KINASE 274 IU/L (26-192)
[2019-05-10 01:02] LABS: HCG SCREEN NEGATIVE
[2019-05-10 03:17] LABS: CLARITY URINE CLOUDY (CLEAR); COLOR URINE YELLOW (YELLOW); KETONES URINE NEGATIVE (NEGATIVE); LEUKOCYTE ESTERASE URINE NEGATIVE (NEGATIVE); NITRITE URINE NEGATIVE (NEGATIVE); OCCULT BLOOD URINE 1+ (NEGATIVE); PH URINE 5.5 (4.5-8.0); PROTEIN URINE 3+ (NEGATIVE); SPECIFIC GRAVITY URINE 1.032 (1.005-1.030); UROBILINOGEN URINE 0.2 E.U./dL (0.2-1.0)
[2019-05-10 04:08] LABS: PHENCYCLIDINE URINE SCREEN NEGATIVE (NEGATIVE)
[2019-05-10 04:09] LABS: *BARBITURATES SCREEN URINE NEGATIVE (NEGATIVE); *BENZODIAZEPINES SCREEN URINE NEGATIVE (NEGATIVE); *COCAINE SCREEN URINE NEGATIVE (NEGATIVE); CANNABINOID URINE SCREEN NEGATIVE (NEGATIVE); METHADONE URINE SCREEN NEGATIVE (NEGATIVE)
[2019-05-10 04:14] LABS: *AMPHETAMINES SCREEN URINE PRESUMTIVE POSITIVE (NEGATIVE)
[2019-05-10 06:12] VITALS: BP 115/60
[2019-05-13 09:09] LABS: OPIATES URINE SCREEN NEGATIVE (NEGATIVE)
== END 2019-05-10 06:19 | disposition home or self-care (01) ==
LOC: ER 19:16
DX: R05 Cough (principal); R00.2 Palpitations; R06.02 Shortness of breath; F15.10 Other stimulant abuse, uncomplicated; E11.9 Type 2 diabetes mellitus without complications; Z98.890 Other specified postprocedural states; Z79.4 Long term (current) use of insulin; Z91.041 Radiographic dye allergy status
CPT/HCPCS: 36415; 80053; 80305; 80307; 80320; 80329; 81003; 82550; 83690; 84443; 84484; 84703; 85025; 93005; 96374; 96375; 99285; J2060; J2405; J7030; G0480

== ENCOUNTER 2019-05-10 18:41 | Emergency (ER) | payer MEDICAID ==
[~2019-05-10] VITALS: Ht 165.1 cm; Wt 67.0 kg
[2019-05-10 18:45] VITALS: BP 147/80
[2019-05-10] MEDS ORDERED: FLUCONAZOLE 100MG TABLET PO ONE (19:00)
[2019-05-10 19:37] LABS: CHLORIDE 99 mEq/L (98-107)
[2019-05-10 19:47] LABS: BASOPHILS % 1.2 % (0.0-2.0); EOSINOPHILS % 2.3 % (0.0-5.0); HEMATOCRIT. 27.8 % (36.0-48.0); HEMOGLOBIN. 8.8 g/dL (12.0-16.0); MEAN CORPUSCULAR HEMOGLOBIN 22.6 pg (28.0-32.0); MEAN CORPUSCULAR VOLUME 71.2 fL (81.0-99.0); MEAN PLATELET VOLUME 7.8 fl (7.4-10.4); MONOCYTES % 6.1 % (2.0-8.0); NEUTROPHILS % 58.4 % (40.0-76.0); PLATELET 391 x1000/uL (130-400); RED CELL DISTRIBUTION WIDTH 17.8 % (11.6-14.6)
[2019-05-10 19:57] LABS: *BENZODIAZEPINES SCREEN URINE NEGATIVE (NEGATIVE); *COCAINE SCREEN URINE NEGATIVE (NEGATIVE); METHADONE URINE SCREEN NEGATIVE (NEGATIVE)
[2019-05-10 19:58] LABS: PHENCYCLIDINE URINE SCREEN NEGATIVE (NEGATIVE)
[2019-05-10 19:59] LABS: CANNABINOID URINE SCREEN NEGATIVE (NEGATIVE)
[2019-05-10 20:10] LABS: *AMPHETAMINES SCREEN URINE PRESUMTIVE POSITIVE (NEGATIVE); *BARBITURATES SCREEN URINE NEGATIVE (NEGATIVE)
[2019-05-10] MEDS ORDERED: LORAZEPAM 1MG TABLET PO NR (22:15)
[2019-05-12 21:29] LABS: OPIATES URINE SCREEN NEGATIVE (NEGATIVE)
== END 2019-05-10 23:19 | disposition home or self-care (01) ==
LOC: ER 18:41
DX: F41.9 Anxiety disorder, unspecified (principal); F15.10 Other stimulant abuse, uncomplicated; R00.2 Palpitations; D64.9 Anemia, unspecified; B37.0 Candidal stomatitis; E11.65 Type 2 diabetes mellitus with hyperglycemia; Z91.041 Radiographic dye allergy status; Z79.4 Long term (current) use of insulin; Z88.6 Allergy status to analgesic agent
CPT/HCPCS: 36415; 80053; 80305; 81025; 85025; 93005; 99284

== ENCOUNTER 2019-05-11 01:35 | Emergency (ER) | payer MEDICAID ==
[~2019-05-11] VITALS: Ht 157.5 cm; Wt 73.0 kg
[2019-05-11 01:52] VITALS: BP 147/91
== END 2019-05-11 05:25 | disposition left against medical advice (07) ==
LOC: ER 01:35
DX: F41.9 Anxiety disorder, unspecified (principal); Z53.21 Procedure and treatment not carried out due to patient leaving prior to being seen by health care provider

== ENCOUNTER 2019-05-11 08:52 | Emergency (ER) | payer MEDICAID ==
[~2019-05-11] VITALS: Ht 162.6 cm; Wt 319.7 kg
[2019-05-11 08:55] VITALS: BP 114/73
[2019-05-11] MEDS ORDERED: LORAZEPAM 1MG TABLET PO ONE (09:15)
[2019-05-11] MEDS ORDERED: LORAZEPAM 2MG/ML CPJ IM ONE (09:15)
== END 2019-05-11 09:39 | disposition home or self-care (01) ==
LOC: ER 08:52
DX: F41.9 Anxiety disorder, unspecified (principal); E11.9 Type 2 diabetes mellitus without complications; I10 Essential (primary) hypertension; F15.10 Other stimulant abuse, uncomplicated; Z79.4 Long term (current) use of insulin; Z91.041 Radiographic dye allergy status; Z88.2 Allergy status to sulfonamides
CPT/HCPCS: 96372; 99284; J2060

== ENCOUNTER 2019-05-12 21:17 | Emergency (ER) | payer MEDICAID ==
[~2019-05-12] VITALS: Ht 167.6 cm; Wt 67.0 kg
[2019-05-12] MEDS ORDERED: LORAZEPAM 0.5MG TABLET PO NR (22:30)
[2019-05-13 00:37] VITALS: BP 111/67
== END 2019-05-13 00:38 | disposition home or self-care (01) ==
LOC: ER 21:17
DX: F15.10 Other stimulant abuse, uncomplicated (principal); F41.9 Anxiety disorder, unspecified; E11.9 Type 2 diabetes mellitus without complications; Z88.6 Allergy status to analgesic agent; Z88.2 Allergy status to sulfonamides; Z88.8 Allergy status to other drugs, medicaments and biological substances; Z88.1 Allergy status to other antibiotic agents
CPT/HCPCS: 99283

== ENCOUNTER 2019-05-13 21:05 | Emergency (ER) | payer MEDICAID ==
[~2019-05-13] VITALS: Ht 162.6 cm; Wt 64.0 kg
[2019-05-13 23:29] VITALS: BP 115/55
== END 2019-05-14 02:37 | disposition left against medical advice (07) ==
LOC: ER 21:05
DX: Z53.21 Procedure and treatment not carried out due to patient leaving prior to being seen by health care provider (principal)

== ENCOUNTER 2019-05-14 11:03 | Emergency (ER) | payer MEDICAID ==
[~2019-05-14] VITALS: Ht 162.6 cm; Wt 55.0 kg
[2019-05-14 11:09] VITALS: BP 105/56
[2019-05-14] MEDS ORDERED: LORAZEPAM 1MG TABLET PO ONE (12:00)
[2019-05-14 12:22] LABS: BASOPHILS % 0.9 % (0.0-2.0); EOSINOPHILS % 1.8 % (0.0-5.0); HEMOGLOBIN. 7.8 g/dL (12.0-16.0); LYMPHOCYTES % 32.5 % (20.0-50.0); MEAN CORPUSCULAR HEMOGLOBIN 22.7 pg (28.0-32.0); MEAN CORPUSCULAR VOLUME 73.2 fL (81.0-99.0); MEAN PLATELET VOLUME 7.4 fl (7.4-10.4); MONOCYTES % 6.6 % (2.0-8.0); NEUTROPHILS % 58.2 % (40.0-76.0); PLATELET 342 x1000/uL (130-400); RED BLOOD CELL COUNT 3.42 mill/uL (4.2-5.4); RED CELL DISTRIBUTION WIDTH 17.7 % (11.6-14.6)
[2019-05-14 12:29] LABS: CHLORIDE 101 mEq/L (98-107)
[2019-05-14] MEDS ORDERED: SODIUM CHLORIDE 0.9% 1,000 ML IV ONE (16:37)
== END 2019-05-14 16:47 | disposition left against medical advice (07) ==
LOC: ER 11:03
DX: R07.89 Other chest pain (principal); D64.9 Anemia, unspecified; F41.9 Anxiety disorder, unspecified; F15.10 Other stimulant abuse, uncomplicated; E11.9 Type 2 diabetes mellitus without complications; Z88.5 Allergy status to narcotic agent; Z88.3 Allergy status to other anti-infective agents; Z91.041 Radiographic dye allergy status; Z98.890 Other specified postprocedural states
CPT/HCPCS: 36415; 71045; 80053; 81025; 83880; 84484; 85025; 93005; 99285; J7030

== ENCOUNTER 2019-05-15 07:52 | Emergency (ER) | payer MEDICAID ==
[~2019-05-15] VITALS: Ht 162.6 cm; Wt 55.0 kg
[2019-05-15 09:00] LABS: BASOPHILS % 0.8 % (0.0-2.0); EOSINOPHILS % 2.2 % (0.0-5.0); HEMATOCRIT. 25.2 % (36.0-48.0); HEMOGLOBIN. 7.8 g/dL (12.0-16.0); LYMPHOCYTES % 28.7 % (20.0-50.0); MEAN CORPUSCULAR HEMOGLOBIN 22.7 pg (28.0-32.0); MEAN CORPUSCULAR VOLUME 72.8 fL (81.0-99.0); MEAN PLATELET VOLUME 7.2 fl (7.4-10.4); MONOCYTES % 6.7 % (2.0-8.0); NEUTROPHILS % 61.6 % (40.0-76.0); PLATELET 349 x1000/uL (130-400); RED BLOOD CELL COUNT 3.45 mill/uL (4.2-5.4); RED CELL DISTRIBUTION WIDTH 17.5 % (11.6-14.6)
[2019-05-15 09:07] LABS: CHLORIDE 99 mEq/L (98-107)
[2019-05-15] MEDS ORDERED: SODIUM CHLORIDE 0.9% 1,000 ML IV ONE (09:16)
[2019-05-15] MEDS ORDERED: INSULIN REGULAR (HUMULIN R) 300UNITS/3ML IV ONE (09:30)
[2019-05-15 10:17] VITALS: BP 115/66
== END 2019-05-15 10:20 | disposition home or self-care (01) ==
LOC: ER 07:52
DX: R73.9 Hyperglycemia, unspecified (principal); F15.10 Other stimulant abuse, uncomplicated; Z88.5 Allergy status to narcotic agent; Z88.2 Allergy status to sulfonamides; Z88.3 Allergy status to other anti-infective agents; Z91.041 Radiographic dye allergy status
CPT/HCPCS: 36415; 80053; 81025; 82962; 85025; 96361; 96374; 99283; J1815; J7030

== ENCOUNTER 2019-05-17 02:04 | Emergency (ER) | payer MEDICAID ==
[~2019-05-17] VITALS: Ht 162.6 cm; Wt 54.0 kg
[2019-05-17 04:46] VITALS: BP 112/79
== END 2019-05-17 07:08 | disposition left against medical advice (07) ==
LOC: ER 02:10
DX: Z53.21 Procedure and treatment not carried out due to patient leaving prior to being seen by health care provider (principal)

== ENCOUNTER 2019-06-01 21:40 | Emergency (ER) | payer MEDICAID ==
[~2019-06-01] VITALS: Ht 167.6 cm; Wt 56.0 kg
[2019-06-01] MEDS ORDERED: LORAZEPAM 1MG TABLET PO ONE (22:15)
[2019-06-01 23:19] VITALS: BP 127/69
== END 2019-06-01 23:29 | disposition home or self-care (01) ==
LOC: ER 21:40
DX: F41.9 Anxiety disorder, unspecified (principal); E11.9 Type 2 diabetes mellitus without complications; F15.10 Other stimulant abuse, uncomplicated; Z88.5 Allergy status to narcotic agent; Z88.2 Allergy status to sulfonamides; Z79.4 Long term (current) use of insulin
CPT/HCPCS: 99283

== ENCOUNTER 2019-11-08 17:02 | Emergency (ER) | payer MEDICAID ==
[~2019-11-08] VITALS: Ht 165.1 cm; Wt 73.0 kg
[2019-11-08 17:15] VITALS: BP 93/66
[2019-11-08] MEDS ORDERED: HYDROXYZINE 25MG TABLET PO ONE (18:30)
== END 2019-11-08 18:58 | disposition left against medical advice (07) ==
LOC: ER 17:02
DX: F41.9 Anxiety disorder, unspecified (principal); F15.10 Other stimulant abuse, uncomplicated; E11.9 Type 2 diabetes mellitus without complications; Z79.4 Long term (current) use of insulin; Z88.5 Allergy status to narcotic agent; Z88.2 Allergy status to sulfonamides; Z88.3 Allergy status to other anti-infective agents; Z91.041 Radiographic dye allergy status
CPT/HCPCS: 93005; 99283

== ENCOUNTER 2019-11-09 15:33 | Emergency (ER) | payer MEDICAID ==
[~2019-11-09] VITALS: Ht 162.6 cm; Wt 63.0 kg
[2019-11-09] MEDS ORDERED: HYDROXYZINE 25MG TABLET PO ONE (16:15)
[2019-11-09 17:15] VITALS: BP 115/68
== END 2019-11-09 17:17 | disposition home or self-care (01) ==
LOC: ER 15:33
DX: F41.9 Anxiety disorder, unspecified (principal); F15.20 Other stimulant dependence, uncomplicated; I49.9 Cardiac arrhythmia, unspecified; E11.9 Type 2 diabetes mellitus without complications; Z88.2 Allergy status to sulfonamides; Z88.8 Allergy status to other drugs, medicaments and biological substances; Z79.4 Long term (current) use of insulin; Z88.6 Allergy status to analgesic agent
CPT/HCPCS: 93005; 99283

== ENCOUNTER 2019-11-15 20:47 | Emergency (ER) | payer MEDICAID ==
[~2019-11-15] VITALS: Ht 157.5 cm; Wt 64.0 kg
[2019-11-15 20:52] VITALS: BP 128/72
[2019-11-15] MEDS ORDERED: SODIUM CHLORIDE 0.9% 1,000 ML IV ONE (21:16)
[2019-11-15] MEDS ORDERED: LORAZEPAM 2MG/ML CPJ IM ONE (21:30)
[2019-11-15 21:39] LABS: BASOPHILS % 0.6 % (0.0-2.0); EOSINOPHILS % 1.4 % (0.0-5.0); HEMATOCRIT. 36.7 % (36.0-48.0); HEMOGLOBIN. 12.5 g/dL (12.0-16.0); LYMPHOCYTES % 25.4 % (20.0-50.0); MEAN CORPUSCULAR HEMOGLOBIN 31.1 pg (28.0-32.0); MEAN CORPUSCULAR VOLUME 91.4 fL (81.0-99.0); MEAN PLATELET VOLUME 8.9 fl (7.4-10.4); MONOCYTES % 5.2 % (2.0-8.0); NEUTROPHILS % 67.4 % (40.0-76.0); PLATELET 325 x1000/uL (130-400); RED BLOOD CELL COUNT 4.01 mill/uL (4.2-5.4); RED CELL DISTRIBUTION WIDTH 15.7 % (11.6-14.6)
[2019-11-15 21:58] LABS: CHLORIDE 105 mEq/L (98-107)
[2019-11-15 22:01] LABS: ETHANOL BLOOD < 10 mg/dL
[2019-11-15 22:07] LABS: BETA HYDROXYBUTYRATE 0.1 mMol/L (0.0-0.3)
== END 2019-11-15 23:15 | disposition home or self-care (01) ==
LOC: ER 20:47
DX: F41.1 Generalized anxiety disorder (principal); F43.0 Acute stress reaction; F32.9 Major depressive disorder, single episode, unspecified; E11.9 Type 2 diabetes mellitus without complications; F15.10 Other stimulant abuse, uncomplicated; Z88.5 Allergy status to narcotic agent; Z88.2 Allergy status to sulfonamides; Z88.3 Allergy status to other anti-infective agents; Z91.041 Radiographic dye allergy status; Z79.4 Long term (current) use of insulin
CPT/HCPCS: 36415; 80053; 80320; 82010; 82962; 83690; 83880; 85025; 93005; 96372; 99285; J2060; J7030; G0480

== ENCOUNTER 2019-11-20 23:33 | Emergency (ER) | payer MEDICAID ==
[~2019-11-20] VITALS: Ht 165.1 cm; Wt 77.0 kg
[2019-11-21] MEDS ORDERED: HYDROXYZINE 25MG TABLET PO ONE (00:45)
[2019-11-21] MEDS ORDERED: LORAZEPAM 1MG TABLET PO ONE (00:45)
[2019-11-21 01:00] VITALS: BP 130/85
== END 2019-11-21 01:01 | disposition home or self-care (01) ==
LOC: ER 23:33
DX: F15.10 Other stimulant abuse, uncomplicated (principal); F41.9 Anxiety disorder, unspecified; E11.9 Type 2 diabetes mellitus without complications; Z88.6 Allergy status to analgesic agent; Z88.8 Allergy status to other drugs, medicaments and biological substances; Z88.2 Allergy status to sulfonamides; Z88.1 Allergy status to other antibiotic agents; Z79.4 Long term (current) use of insulin; Z79.899 Other long term (current) drug therapy; Z98.890 Other specified postprocedural states
CPT/HCPCS: 93005; 99283

== ENCOUNTER 2019-11-21 01:59 | Emergency (ER) | payer MEDICAID ==
[~2019-11-21] VITALS: Ht 157.5 cm; Wt 77.0 kg
[2019-11-21 02:01] VITALS: BP 134/64
== END 2019-11-21 02:50 | disposition left against medical advice (07) ==
LOC: ER 01:59
DX: F41.9 Anxiety disorder, unspecified (principal); E11.9 Type 2 diabetes mellitus without complications; F15.10 Other stimulant abuse, uncomplicated; F19.10 Other psychoactive substance abuse, uncomplicated; Z88.2 Allergy status to sulfonamides; Z88.6 Allergy status to analgesic agent; Z88.1 Allergy status to other antibiotic agents; Z88.8 Allergy status to other drugs, medicaments and biological substances; Z91.041 Radiographic dye allergy status; Z79.4 Long term (current) use of insulin; Z79.899 Other long term (current) drug therapy; Z98.890 Other specified postprocedural states
CPT/HCPCS: 99283

== ENCOUNTER 2019-11-21 03:29 | Emergency (ER) | payer MEDICAID ==
[~2019-11-21] VITALS: Ht 167.6 cm; Wt 77.0 kg
[2019-11-21 03:32] VITALS: BP 101/64
== END 2019-11-21 04:05 | disposition home or self-care (01) ==
LOC: ER 03:29
DX: F41.9 Anxiety disorder, unspecified (principal); F15.10 Other stimulant abuse, uncomplicated; E11.9 Type 2 diabetes mellitus without complications; Z76.5 Malingerer [conscious simulation]; Z79.4 Long term (current) use of insulin; Z88.8 Allergy status to other drugs, medicaments and biological substances; Z88.6 Allergy status to analgesic agent; Z88.2 Allergy status to sulfonamides; Z88.1 Allergy status to other antibiotic agents; Z79.899 Other long term (current) drug therapy; Z98.890 Other specified postprocedural states
CPT/HCPCS: 99281

== ENCOUNTER 2019-11-21 21:29 | Emergency (ER) | payer MEDICAID ==
[~2019-11-21] VITALS: Ht 167.6 cm; Wt 71.0 kg
[2019-11-21 22:32] VITALS: BP 30/81
== END 2019-11-21 22:33 | disposition home or self-care (01) ==
LOC: ER 21:29
DX: F15.10 Other stimulant abuse, uncomplicated (principal); F41.9 Anxiety disorder, unspecified; I10 Essential (primary) hypertension; Z88.8 Allergy status to other drugs, medicaments and biological substances; Z88.6 Allergy status to analgesic agent; Z88.2 Allergy status to sulfonamides; Z88.1 Allergy status to other antibiotic agents; Z79.4 Long term (current) use of insulin
CPT/HCPCS: 93005; 99283

== ENCOUNTER 2019-11-21 23:04 | Emergency (ER) | payer MEDICAID ==
[~2019-11-21] VITALS: Ht 165.1 cm; Wt 69.0 kg
[2019-11-21 23:05] VITALS: BP 99/68
== END 2019-11-21 23:43 | disposition home or self-care (01) ==
LOC: ER 23:04
DX: F15.10 Other stimulant abuse, uncomplicated (principal); F41.9 Anxiety disorder, unspecified; E11.9 Type 2 diabetes mellitus without complications; Z88.8 Allergy status to other drugs, medicaments and biological substances; Z88.6 Allergy status to analgesic agent; Z88.2 Allergy status to sulfonamides; Z88.1 Allergy status to other antibiotic agents; Z79.2 Long term (current) use of antibiotics; Z98.890 Other specified postprocedural states; Z79.4 Long term (current) use of insulin
CPT/HCPCS: 82962; 99282

== ENCOUNTER 2019-11-23 02:18 | Emergency (ER) | payer MEDICAID ==
[~2019-11-23] VITALS: Ht 170.2 cm; Wt 74.0 kg
[2019-11-23 02:25] VITALS: BP 140/80
== END 2019-11-23 02:40 | disposition home or self-care (01) ==
LOC: ER 02:18
DX: F41.9 Anxiety disorder, unspecified (principal); F15.10 Other stimulant abuse, uncomplicated; Z98.890 Other specified postprocedural states; Z88.2 Allergy status to sulfonamides; Z91.041 Radiographic dye allergy status; Z88.5 Allergy status to narcotic agent
CPT/HCPCS: 93005; 99283

== ENCOUNTER 2019-11-23 19:15 | Emergency (ER) | payer MEDICAID ==
[~2019-11-23] VITALS: Ht 160 cm; Wt 63.0 kg
[2019-11-23 19:27] VITALS: BP 110/80
== END 2019-11-23 20:15 | disposition left against medical advice (07) ==
LOC: ER 19:15
DX: R10.9 Unspecified abdominal pain (principal); Z53.21 Procedure and treatment not carried out due to patient leaving prior to being seen by health care provider

== ENCOUNTER 2020-01-09 10:04 | Emergency (ER) | payer MEDICAID ==
[~2020-01-09] VITALS: Ht 162.6 cm; Wt 73.0 kg
[2020-01-09 11:44] LABS: BASOPHILS % 0.5 % (0.0-2.0); EOSINOPHILS % 2.2 % (0.0-5.0); HEMATOCRIT. 42.7 % (36.0-48.0); HEMOGLOBIN. 14.3 g/dL (12.0-16.0); LYMPHOCYTES % 35.3 % (20.0-50.0); MEAN CORPUSCULAR HEMOGLOBIN 32.4 pg (28.0-32.0); MEAN CORPUSCULAR VOLUME 96.7 fL (81.0-99.0); MEAN PLATELET VOLUME 8.8 fl (7.4-10.4); MONOCYTES % 5.3 % (2.0-8.0); NEUTROPHILS % 56.7 % (40.0-76.0); PLATELET 315 x1000/uL (130-400); RED BLOOD CELL COUNT 4.41 mill/uL (4.2-5.4); RED CELL DISTRIBUTION WIDTH 15.7 % (11.6-14.6)
[2020-01-09 11:46] LABS: CHLORIDE 101 mEq/L (98-107)
[2020-01-09 11:47] LABS: CLARITY URINE CLOUDY (CLEAR); COLOR URINE DARK YELLOW (YELLOW); KETONES URINE TRACE (NEGATIVE); LEUKOCYTE ESTERASE URINE TRACE (NEGATIVE); NITRITE URINE NEGATIVE (NEGATIVE); OCCULT BLOOD URINE 1+ (NEGATIVE); PROTEIN URINE 2+ (NEGATIVE); SPECIFIC GRAVITY URINE 1.027 (1.005-1.030)
[2020-01-09] MEDS ORDERED: LORAZEPAM 1MG TABLET PO ONE (12:00)
[2020-01-09 12:06] LABS: *BARBITURATES SCREEN URINE NEGATIVE (NEGATIVE); *BENZODIAZEPINES SCREEN URINE NEGATIVE (NEGATIVE)
[2020-01-09 12:07] LABS: *COCAINE SCREEN URINE NEGATIVE (NEGATIVE); CANNABINOID URINE SCREEN NEGATIVE (NEGATIVE); METHADONE URINE SCREEN NEGATIVE (NEGATIVE); OPIATES URINE SCREEN NEGATIVE (NEGATIVE); PHENCYCLIDINE URINE SCREEN NEGATIVE (NEGATIVE)
[2020-01-09 12:18] LABS: *AMPHETAMINES SCREEN URINE PRESUMTIVE POSITIVE (NEGATIVE)
[2020-01-09 12:30] VITALS: BP 106/74
== END 2020-01-09 14:09 | disposition left against medical advice (07) ==
LOC: ER 10:04
DX: F41.0 Panic disorder [episodic paroxysmal anxiety] (principal); F15.10 Other stimulant abuse, uncomplicated; E87.6 Hypokalemia; E11.649 Type 2 diabetes mellitus with hypoglycemia without coma; Z91.041 Radiographic dye allergy status; Z88.6 Allergy status to analgesic agent; Z88.1 Allergy status to other antibiotic agents; Z88.2 Allergy status to sulfonamides; Z79.4 Long term (current) use of insulin
CPT/HCPCS: 36415; 71045; 80053; 80305; 81003; 81025; 83880; 84484; 85025; 93005; 99285; Z7610

== ENCOUNTER 2020-01-29 21:50 | Emergency (ER) | payer MEDICAID ==
[~2020-01-29] VITALS: Ht 162.6 cm; Wt 64.0 kg
[2020-01-29] MEDS ORDERED: LORAZEPAM 1MG TABLET PO ONE (23:00)
[2020-01-30] MEDS ORDERED: SODIUM CHLORIDE 0.9% 1,000 ML IV ONE (00:30)
[2020-01-30 01:38] VITALS: BP 137/79
== END 2020-01-30 01:41 | disposition home or self-care (01) ==
LOC: ER 21:50
DX: F15.10 Other stimulant abuse, uncomplicated (principal); F41.0 Panic disorder [episodic paroxysmal anxiety]; Z88.6 Allergy status to analgesic agent; Z88.2 Allergy status to sulfonamides; Z88.1 Allergy status to other antibiotic agents; Z79.4 Long term (current) use of insulin; E11.9 Type 2 diabetes mellitus without complications; Z91.041 Radiographic dye allergy status
CPT/HCPCS: 93005; 99283; J7030

== ENCOUNTER 2020-01-30 02:18 | Emergency (ER) | payer MEDICAID ==
[~2020-01-30] VITALS: Ht 157.5 cm; Wt 64.0 kg
[2020-01-30 04:02] VITALS: BP 128/79
== END 2020-01-30 04:04 | disposition home or self-care (01) ==
LOC: ER 02:18
DX: F15.10 Other stimulant abuse, uncomplicated (principal); E11.9 Type 2 diabetes mellitus without complications; Z91.041 Radiographic dye allergy status; Z88.6 Allergy status to analgesic agent; Z88.2 Allergy status to sulfonamides; Z88.1 Allergy status to other antibiotic agents; Z79.4 Long term (current) use of insulin
CPT/HCPCS: 99283

== ENCOUNTER 2020-04-14 23:44 | Emergency (ER) | payer MEDICAID ==
[~2020-04-14] VITALS: Ht 167.6 cm; Wt 59.0 kg
[2020-04-15] MEDS ORDERED: QUETIAPINE FUMARATE 25MG TABLET PO SCH
[2020-04-15] MEDS ORDERED: ARIPIPRAZOLE 5MG TABLET PO ONE
[2020-04-15] MEDS ORDERED: ARIPIPRAZOLE 2MG TABLET PO SCH (00:15)
[2020-04-15 01:00] VITALS: BP 116/66
== END 2020-04-15 01:25 | disposition home or self-care (01) ==
LOC: ER 23:54
DX: F41.9 Anxiety disorder, unspecified (principal); F15.10 Other stimulant abuse, uncomplicated; Z88.5 Allergy status to narcotic agent; Z88.2 Allergy status to sulfonamides; Z88.3 Allergy status to other anti-infective agents; Z91.041 Radiographic dye allergy status
CPT/HCPCS: 81025; 99283

== ENCOUNTER 2020-04-20 15:43 | Emergency (ER) | payer MEDICAID ==
[~2020-04-20] VITALS: Ht 162.6 cm; Wt 75.0 kg
[2020-04-20] MEDS ORDERED: LORAZEPAM 2MG/ML CPJ IV STA (15:58)
[2020-04-20] MEDS ORDERED: SODIUM CHLORIDE 0.9% 1,000 ML IV ONE (16:00)
[2020-04-20 16:19] LABS: BASOPHILS % 0.5 % (0.0-2.0); EOSINOPHILS % 2.7 % (0.0-5.0); HEMOGLOBIN. 11.9 g/dL (12.0-16.0); LYMPHOCYTES % 33.7 % (20.0-50.0); MEAN CORPUSCULAR HEMOGLOBIN 32.5 pg (28.0-32.0); MEAN CORPUSCULAR VOLUME 95.9 fL (81.0-99.0); MEAN PLATELET VOLUME 9.1 fl (7.4-10.4); MONOCYTES % 5.7 % (2.0-8.0); NEUTROPHILS % 57.4 % (40.0-76.0); PLATELET 234 x1000/uL (130-400); RED BLOOD CELL COUNT 3.65 mill/uL (4.2-5.4); RED CELL DISTRIBUTION WIDTH 13.3 % (11.6-14.6)
[2020-04-20 16:24] LABS: CHLORIDE 106 mEq/L (98-107)
[2020-04-20 16:25] LABS: HCG SCREEN NEGATIVE
[2020-04-20 16:28] LABS: ETHANOL BLOOD < 10 mg/dL
[2020-04-20] MEDS ORDERED: LORAZEPAM 1MG TABLET PO ONE (16:30)
[2020-04-20 18:01] VITALS: BP 130/87
== END 2020-04-20 18:04 | disposition home or self-care (01) ==
LOC: ER 15:43
DX: F41.9 Anxiety disorder, unspecified (principal); F15.10 Other stimulant abuse, uncomplicated; E11.9 Type 2 diabetes mellitus without complications; Z88.6 Allergy status to analgesic agent; Z88.2 Allergy status to sulfonamides; Z88.1 Allergy status to other antibiotic agents; Z88.0 Allergy status to penicillin; Z91.041 Radiographic dye allergy status
CPT/HCPCS: 36415; 80053; 80320; 84703; 85025; 93005; 99284; J7030; G0480